=== PATIENT | female | born 1950 | race Caucasian/White ===

== ENCOUNTER 2024-05-06 10:31 | Emergency (ER) | payer OTHER ==
[~2024-05-06] VITALS: Ht 157.5 cm; Wt 58.0 kg
[2024-05-06 10:36] VITALS: BP 110/66; PULSE 78; RESP 16; TEMP 98; O2SAT 97
== END 2024-05-06 13:34 | disposition left against medical advice (07) ==
LOC: ER 10:32
DX: Z04.3 Encounter for examination and observation following other accident (principal); Z53.21 Procedure and treatment not carried out due to patient leaving prior to being seen by health care provider; W19.XXXA Unspecified fall, initial encounter; Y93.89 Activity, other specified; Y92.89 Other specified places as the place of occurrence of the external cause; Y99.8 Other external cause status